=== PATIENT | male | born 1935 | race Caucasian/White ===

== ENCOUNTER 2019-09-04 16:00 | Inpatient (IN) | payer OTHER ==
[~2019-09-04] VITALS: Ht 177.8 cm; Wt 102.1 kg
[~2019-09-04 16:00] MED LIST: AMLODIPINE BESY10 M1 PO; CIPRO500 MG PO; COL100 PO; DICLOFENAC SOD75 M1 PO; ECO81 PO; GLU500 PO; HYDROCHLOROTH12.5 MG PO; LAC PO; METOPROLOL SUC100 M2 PO; METOPROLOL SUC200 M2 PO; METOPROLOL TART25 M1 PO; MOM PO; MYL80 CH; OYSTER SHELL C500 M3 PO; PRILOSEC20 MG PO; VITAMIN-D1000 IU PO; XARELTO20 M1 PO; ZESTRIL5 MG PO; ZOC10 PO; ZOFRAN8 MG PO
[2019-09-04 16:11] VITALS: Ht 177.8 cm; Wt 102.1 kg
[2019-09-04] MEDS ORDERED: AMLODIPINE BESY10 M2 PO ×2 (16:51→18:19)
[2019-09-04 18:17] LABS: PLATELET COUNT 164 x10^3mcL (130-400); RED CELL DISTRIBUTION WIDTH 13.4 % (11.5-14.5)
[2019-09-04 18:18] LABS: BASOPHIL % 0 % (0-2)
[2019-09-04] MEDS ORDERED: OMEPRAZOLE MAGN20 M1 PO (18:20)
[2019-09-04] MEDS ORDERED: XARELTO20 M1 PO (18:20)
[2019-09-04] MEDS ORDERED: LISINOPRIL-HYDR1 TA2 PO (18:20)
[2019-09-04] MEDS ORDERED: TOPROL XL100 MG PO (18:21)
[2019-09-04] MEDS ORDERED: SIMVASTATIN5 M2 PO (18:22)
[2019-09-04 18:35] LABS: microscopic required? YES; urine erythrocyte 1+ (NEGATIVE)
[2019-09-04 18:55] LABS: CALCIUM 9.3 mg/dL (8.5-10.1); CARBON DIOXIDE 25.7 mmol/L (21-32); CHLORIDE SERUM 103 mmol/L (98-107); CREATININE SERUM 1.2 mg/dL (0.7-1.3); GLUCOSE SERUM 122 mg/dL (74-106); POTASSIUM SERUM 3.8 mmol/L (3.5-5.1); SODIUM SERUM 140 mmol/L (136-145)
[2019-09-04 19:00] LABS: ALBUMIN 3.6 g/dL (3.4-5.0); ALKALINE PHOSPHATASE 72 U/L (46-116); ALT/SGPT 25 U/L (16-63); AST/SGOT 22 U/L (15-37); BILIRUBIN TOTAL 0.7 mg/dL (0.20-1.00)
[2019-09-04 22:51] VITALS: BP 126/80
[2019-09-05 04:49] VITALS: BP 104/77
[2019-09-05 06:42] LABS: BASOPHIL % 0.3 % (0-2); PLATELET COUNT 138 x10^3mcL (130-400); RED CELL DISTRIBUTION WIDTH 13.6 % (11.5-14.5)
[2019-09-05 07:01] LABS: ALKALINE PHOSPHATASE 54 U/L (46-116); ALT/SGPT 21 U/L (16-63); AST/SGOT 15 U/L (15-37); CALCIUM 8.6 mg/dL (8.5-10.1); CARBON DIOXIDE 34.2 mmol/L (21-32); CHLORIDE SERUM 105 mmol/L (98-107); CREATININE SERUM 0.9 mg/dL (0.7-1.3); GLUCOSE SERUM 110 mg/dL (74-106); MAGNESIUM 1.8 mg/dL (1.8-2.4); POTASSIUM SERUM 4.4 mmol/L (3.5-5.1); SODIUM SERUM 142 mmol/L (136-145)
[2019-09-05 07:28] LABS: ALBUMIN 2.9 g/dL (3.4-5.0); TOTAL PROTEIN, SERUM 5.9 g/dL (6.4-8.2)
[2019-09-05 08:00] VITALS: BP 97/42
[2019-09-05 12:00] VITALS: BP 119/74
[2019-09-05 17:59] VITALS: BP 137/76
[2019-09-05 21:25] VITALS: BP 103/54
[2019-09-06 05:20] VITALS: BP 130/83
[2019-09-06 06:45] LABS: BASOPHIL % 0.3 % (0-2); PLATELET COUNT 133 x10^3mcL (130-400); RED CELL DISTRIBUTION WIDTH 13.5 % (11.5-14.5)
[2019-09-06 07:09] LABS: ALKALINE PHOSPHATASE 57 U/L (46-116); ALT/SGPT 18 U/L (16-63); AST/SGOT 16 U/L (15-37); BILIRUBIN TOTAL 0.58 mg/dL (0.20-1.00); CALCIUM 8.5 mg/dL (8.5-10.1); CARBON DIOXIDE 32.6 mmol/L (21-32); CHLORIDE SERUM 105 mmol/L (98-107); CREATININE SERUM 0.8 mg/dL (0.7-1.3); GLUCOSE SERUM 107 mg/dL (74-106); MAGNESIUM 1.9 mg/dL (1.8-2.4); SODIUM SERUM 139 mmol/L (136-145)
[2019-09-06 07:20] LABS: ALBUMIN 2.9 g/dL (3.4-5.0); TOTAL PROTEIN, SERUM 5.9 g/dL (6.4-8.2)
[2019-09-06 08:45] VITALS: BP 156/88
[2019-09-06 14:28] VITALS: BP 112/68
[2019-09-06 17:39] VITALS: BP 129/79
[2019-09-06 21:10] VITALS: BP 127/61
[2019-09-07 05:13] VITALS: BP 109/53
[2019-09-07 07:22] LABS: CALCIUM 8.8 mg/dL (8.5-10.1); CARBON DIOXIDE 31.2 mmol/L (21-32); CHLORIDE SERUM 103 mmol/L (98-107); CREATININE SERUM 0.8 mg/dL (0.7-1.3); GLUCOSE SERUM 105 mg/dL (74-106); MAGNESIUM 2.1 mg/dL (1.8-2.4); SODIUM SERUM 139 mmol/L (136-145)
[2019-09-07 07:33] VITALS: BP 126/82
[2019-09-07] MEDS ORDERED: KEFLEX500 M1 PO (09:15)
[2019-09-07 10:05] VITALS: BP 126/82
== END 2019-09-07 13:45 | disposition home or self-care (01) | DRG 865 ==
LOC: ED 16:00 → DU 20:27 → MU 20:27 → ED 20:27 → DU 22:43
PROVIDERS: Emergency Medicine; Internal Medicine Pulmonary Disease; ADMIT Internal Medicine Pulmonary Disease
DX: B34.9 Viral infection, unspecified (principal); J96.01 Acute respiratory failure with hypoxia; N39.0 Urinary tract infection, site not specified; I48.91 Unspecified atrial fibrillation; R05 Cough; R50.9 Fever, unspecified; I10 Essential (primary) hypertension; E11.9 Type 2 diabetes mellitus without complications; K43.9 Ventral hernia without obstruction or gangrene; E78.5 Hyperlipidemia, unspecified; E78.00 Pure hypercholesterolemia, unspecified; F41.9 Anxiety disorder, unspecified; Z79.84 Long term (current) use of oral hypoglycemic drugs; Z83.3 Family history of diabetes mellitus; Z82.49 Family history of ischemic heart disease and other diseases of the circulatory system; Z84.1 Family history of disorders of kidney and ureter; Z88.7 Allergy status to serum and vaccine
CPT/HCPCS: 83880; 87804; G0378; J0456; J0696; J1956; J3490; J7030; J7120; Q0092; U0002

== ENCOUNTER 2020-07-03 14:15 | Inpatient (IN) | payer OTHER, SELFPAY ==
[~2020-07-03] VITALS: Ht 162.6 cm; Wt 171.0 kg
[~2020-07-03 14:15] MED LIST changes: +AMLODIPINE BESY10 M2 PO; +KEFLEX500 M1 PO; +LISINOPRIL-HYDR1 TA2 PO; +OMEPRAZOLE MAGN20 M1 PO; +SIMVASTATIN5 M2 PO; +TOPROL XL100 MG PO
[2020-07-03 14:16] VITALS: Ht 162.6 cm; Wt 171.0 kg
[2020-07-03 15:02] LABS: BASOPHIL % 0.3 % (0.2-1.5); RED CELL DISTRIBUTION WIDTH 13.7 % (12.1-16.2)
[2020-07-03 15:09] LABS: PLATELET COUNT 115 x10^3mcL (152-348)
[2020-07-03 15:15] LABS: CALCIUM 8.5 mg/dL (8.5-10.1); CARBON DIOXIDE 27.1 mmol/L (21-32); CHLORIDE SERUM 100 mmol/L (98-107); CREATININE SERUM 1.1 mg/dL (0.7-1.3); GLUCOSE SERUM 161 mg/dL (74-106); POTASSIUM SERUM 4.1 mmol/L (3.5-5.1); SODIUM SERUM 136 mmol/L (136-145)
[2020-07-03 15:20] LABS: ALKALINE PHOSPHATASE 60 U/L (46-116); ALT/SGPT 54 U/L (16-63); AST/SGOT 65 U/L (15-37); BILIRUBIN TOTAL 0.6 mg/dL (0.20-1.00); C REACTIVE PROTEIN 11.2 mg/dL (<=0.9); LACTIC DEHYDROGENASE (LDH) 337 U/L (100-190); TOTAL PROTEIN, SERUM 6.9 g/dL (6.4-8.2)
[2020-07-03 15:24] LABS: ALBUMIN 3.2 g/dL (3.4-5.0)
[2020-07-03 21:41] VITALS: BP 120/75
[2020-07-04 00:15] VITALS: BP 120/75
[2020-07-04 05:16] VITALS: BP 122/74
[2020-07-04 08:06] LABS: ALKALINE PHOSPHATASE 54 U/L (46-116); ALT/SGPT 128 U/L (16-63); AST/SGOT 190 U/L (15-37); BILIRUBIN TOTAL 0.52 mg/dL (0.20-1.00); CALCIUM 8.1 mg/dL (8.5-10.1); CARBON DIOXIDE 30.1 mmol/L (21-32); CHLORIDE SERUM 103 mmol/L (98-107); GLUCOSE SERUM 125 mg/dL (74-106); HDL CHOLESTEROL 39 mg/dL (40-60); POTASSIUM SERUM 4.9 mmol/L (3.5-5.1); SODIUM SERUM 140 mmol/L (136-145); TOTAL PROTEIN, SERUM 6.3 g/dL (6.4-8.2); TRIGLYCERIDES 104 mg/dL (<150)
[2020-07-04 08:17] LABS: ALBUMIN 2.7 g/dL (3.4-5.0); CHOLESTEROL 130 mg/dL (<200); CHOLESTEROL/HDL RATIO 3.3
[2020-07-04 08:23] VITALS: BP 110/80
[2020-07-04 08:34] LABS: BASOPHIL % 0.4 % (0.2-1.5); RED CELL DISTRIBUTION WIDTH 13.7 % (12.1-16.2)
[2020-07-04 08:40] LABS: PLATELET COUNT 114 x10^3mcL (152-348)
[2020-07-04 08:47] LABS: ALBUMIN 2.8 g/dL (3.4-5.0); BILIRUBIN DIRECT 0.22 mg/dL (0.0-0.2); BILIRUBIN TOTAL 0.5 mg/dL (0.20-1.00); TOTAL PROTEIN, SERUM 5.6 g/dL (6.4-8.2)
[2020-07-04 13:16] VITALS: BP 120/69
[2020-07-04 17:25] VITALS: BP 152/93
[2020-07-05] VITALS (9 sets, daily range): BP systolic 124–143; BP diastolic 75–86
[2020-07-05 09:24] LABS: BASOPHIL % 0.1 % (0.2-1.5); PLATELET COUNT 150 x10^3mcL (152-348); RED CELL DISTRIBUTION WIDTH 13.7 % (12.1-16.2)
[2020-07-05 09:42] LABS: ALKALINE PHOSPHATASE 67 U/L (46-116); ALT/SGPT 165 U/L (16-63); AST/SGOT 158 U/L (15-37); BILIRUBIN TOTAL 0.6 mg/dL (0.20-1.00); CALCIUM 8.5 mg/dL (8.5-10.1); CARBON DIOXIDE 27.6 mmol/L (21-32); CHLORIDE SERUM 104 mmol/L (98-107); CREATININE SERUM 0.9 mg/dL (0.7-1.3); GLUCOSE SERUM 188 mg/dL (74-106); POTASSIUM SERUM 4.3 mmol/L (3.5-5.1); SODIUM SERUM 141 mmol/L (136-145); TOTAL PROTEIN, SERUM 6.8 g/dL (6.4-8.2)
[2020-07-05 10:32] LABS: BILIRUBIN DIRECT 0.22 mg/dL (0.0-0.2); BILIRUBIN TOTAL 0.6 mg/dL (0.20-1.00); TOTAL PROTEIN, SERUM 6.3 g/dL (6.4-8.2)
[2020-07-05 10:50] LABS: ALBUMIN 3.2 g/dL (3.4-5.0)
[2020-07-06] VITALS (25 sets, daily range): BP systolic 86–153; BP diastolic 53–81
[2020-07-06 11:57] LABS: BASOPHIL % 0.1 % (0.2-1.5); PLATELET COUNT 195 x10^3mcL (152-348); RED CELL DISTRIBUTION WIDTH 14.3 % (12.1-16.2)
[2020-07-06 12:54] LABS: ALBUMIN 2.7 g/dL (3.4-5.0); ALKALINE PHOSPHATASE 66 U/L (46-116); ALT/SGPT 110 U/L (16-63); AST/SGOT 74 U/L (15-37); BILIRUBIN TOTAL 0.97 mg/dL (0.20-1.00); CALCIUM 7.9 mg/dL (8.5-10.1); CARBON DIOXIDE 21.6 mmol/L (21-32); CHLORIDE SERUM 104 mmol/L (98-107); CREATININE SERUM 1.1 mg/dL (0.7-1.3); GLUCOSE SERUM 346 mg/dL (74-106); POTASSIUM SERUM 4.8 mmol/L (3.5-5.1); SODIUM SERUM 139 mmol/L (136-145)
[2020-07-07] VITALS (35 sets, daily range): BP systolic 104–168; BP diastolic 53–80
[2020-07-07 07:24] LABS: BASOPHIL % 0.1 % (0.2-1.5); PLATELET COUNT 191 x10^3mcL (152-348); RED CELL DISTRIBUTION WIDTH 13.7 % (12.1-16.2)
[2020-07-07 07:30] LABS: ALBUMIN 2.8 g/dL (3.4-5.0); ALKALINE PHOSPHATASE 72 U/L (46-116); ALT/SGPT 85 U/L (16-63); AST/SGOT 55 U/L (15-37); BILIRUBIN TOTAL 0.8 mg/dL (0.20-1.00); CALCIUM 7.6 mg/dL (8.5-10.1); CARBON DIOXIDE 22.6 mmol/L (21-32); CHLORIDE SERUM 106 mmol/L (98-107); CREATININE SERUM 1.1 mg/dL (0.7-1.3); GLUCOSE SERUM 342 mg/dL (74-106); POTASSIUM SERUM 4.5 mmol/L (3.5-5.1); SODIUM SERUM 141 mmol/L (136-145); TOTAL PROTEIN, SERUM 6.2 g/dL (6.4-8.2)
[2020-07-08] VITALS (8 sets, daily range): BP systolic 89–136; BP diastolic 59–79
[2020-07-08 07:19] LABS: BASOPHIL % 0.1 % (0.2-1.5); PLATELET COUNT 178 x10^3mcL (152-348)
[2020-07-08 07:53] LABS: ALKALINE PHOSPHATASE 75 U/L (46-116); ALT/SGPT 77 U/L (16-63); AST/SGOT 49 U/L (15-37); BILIRUBIN TOTAL 0.6 mg/dL (0.20-1.00); CALCIUM 7.5 mg/dL (8.5-10.1); CARBON DIOXIDE 22.7 mmol/L (21-32); CHLORIDE SERUM 112 mmol/L (98-107); CREATININE SERUM 1.1 mg/dL (0.7-1.3); GLUCOSE SERUM 280 mg/dL (74-106); POTASSIUM SERUM 4.7 mmol/L (3.5-5.1); SODIUM SERUM 146 mmol/L (136-145)
[2020-07-08 07:54] LABS: ALBUMIN 2.4 g/dL (3.4-5.0); TOTAL PROTEIN, SERUM 5.7 g/dL (6.4-8.2)
[2020-07-09] VITALS (10 sets, daily range): BP systolic 98–132; BP diastolic 53–88
[2020-07-09 07:23] LABS: BASOPHIL % 0.2 % (0.2-1.5); PLATELET COUNT 183 x10^3mcL (152-348)
[2020-07-09 08:24] LABS: CALCIUM 8.2 mg/dL (8.5-10.1); CARBON DIOXIDE 28.1 mmol/L (21-32); CHLORIDE SERUM 114 mmol/L (98-107); CREATININE SERUM 1.2 mg/dL (0.7-1.3); GLUCOSE SERUM 279 mg/dL (74-106); SODIUM SERUM 151 mmol/L (136-145)
[2020-07-09 08:25] LABS: RED CELL DISTRIBUTION WIDTH 14.6 % (12.1-16.2)
[2020-07-10] VITALS (8 sets, daily range): BP systolic 93–111; BP diastolic 51–72
[2020-07-10 08:15] LABS: BASOPHIL % 0.2 % (0.2-1.5); PLATELET COUNT 175 x10^3mcL (152-348); RED CELL DISTRIBUTION WIDTH 14.5 % (12.1-16.2)
[2020-07-10 08:53] LABS: ALKALINE PHOSPHATASE 78 U/L (46-116); ALT/SGPT 65 U/L (16-63); AST/SGOT 45 U/L (15-37); BILIRUBIN TOTAL 0.6 mg/dL (0.20-1.00); CALCIUM 7.6 mg/dL (8.5-10.1); CARBON DIOXIDE 25.5 mmol/L (21-32); CHLORIDE SERUM 115 mmol/L (98-107); GLUCOSE SERUM 274 mg/dL (74-106); MAGNESIUM 3.1 mg/dL (1.8-2.4); POTASSIUM SERUM 4.8 mmol/L (3.5-5.1); SODIUM SERUM 150 mmol/L (136-145)
[2020-07-10 08:55] LABS: ALBUMIN 2.2 g/dL (3.4-5.0)
[2020-07-11] VITALS (12 sets, daily range): BP systolic 92–121; BP diastolic 51–71
[2020-07-12] VITALS: BP 76/31
[2020-07-12 03:05] VITALS: BP 110/55
[2020-07-12 04:00] VITALS: BP 161/30
[2020-07-12 06:29] LABS: PLATELET COUNT 241 x10^3mcL (152-348)
[2020-07-12 07:27] LABS: ALKALINE PHOSPHATASE 251 U/L (46-116); ALT/SGPT 54 U/L (16-63); AST/SGOT 47 U/L (15-37); BILIRUBIN TOTAL 0.78 mg/dL (0.20-1.00); CALCIUM 7.7 mg/dL (8.5-10.1); CARBON DIOXIDE 21.6 mmol/L (21-32); CHLORIDE SERUM 112 mmol/L (98-107); CREATININE SERUM 2.5 mg/dL (0.7-1.3); GLUCOSE SERUM 258 mg/dL (74-106); SODIUM SERUM 148 mmol/L (136-145); TOTAL PROTEIN, SERUM 6.4 g/dL (6.4-8.2)
[2020-07-12 08:01] LABS: RED CELL DISTRIBUTION WIDTH 16.3 % (12.1-16.2)
[2020-07-12 08:20] VITALS: BP 117/76
[2020-07-12 08:32] LABS: ATYPICAL LYMPH 2 %; BAND NEUTROPHIL 42 % (0-10); METAMYELOCTE 3 % (0-2); MONOCYTE 6 % (0-7); MYELOCYTE 2 % (0-2); SEGMENTED NEUTROPHILS 39 % (37-75); rbc morphology (normal/abnorm) ABNORMAL (NORMAL)
[2020-07-12 08:33] LABS: PLATELET MORPHOLOGY GIANT PLATELET SEEN
[2020-07-12 08:39] LABS: ALBUMIN 1.9 g/dL (3.4-5.0); POTASSIUM SERUM 5.6 mmol/L (3.5-5.1)
[2020-07-12 09:50] VITALS: BP 91/36
[2020-07-12 12:00] VITALS: BP 120/74; BP 182/68
== END 2020-07-12 20:00 | DRG 870 ==
LOC: ED 14:15 → DU 17:33 → IC 17:33 → DU 21:15 → IC 07-08 12:39
PROVIDERS: Emergency Medicine; Internal Medicine Pulmonary Disease; ADMIT Hospitalist; ATTEND Hospitalist
PROC: XW033E5 Introduction of Remdesivir Anti-infective into Peripheral Vein, Percutaneous Approach, New Technology Group 5 (ICD-10-PCS; 2020-07-03)
PROC: 5A09357 Assistance with Respiratory Ventilation, Less than 24 Consecutive Hours, Continuous Positive Airway Pressure (ICD-10-PCS; 2020-07-05)
PROC: 5A1955Z Respiratory Ventilation, Greater than 96 Consecutive Hours (ICD-10-PCS; principal; 2020-07-06)
PROC: 0BH17EZ Insertion of Endotracheal Airway into Trachea, Via Natural or Artificial Opening (ICD-10-PCS; 2020-07-06)
PROC: XW13325 Transfusion of Convalescent Plasma (Nonautologous) into Peripheral Vein, Percutaneous Approach, New Technology Group 5 (ICD-10-PCS; 2020-07-06)
PROC: 02HV33Z Insertion of Infusion Device into Superior Vena Cava, Percutaneous Approach (ICD-10-PCS; 2020-07-06)
PROC: B548ZZA Ultrasonography of Superior Vena Cava, Guidance (ICD-10-PCS; 2020-07-06)
DX: A41.89 Other specified sepsis (principal); U07.1 COVID-19; J12.82 Pneumonia due to coronavirus disease 2019; J96.01 Acute respiratory failure with hypoxia; R65.21 Severe sepsis with septic shock; N17.0 Acute kidney failure with tubular necrosis; E87.0 Hyperosmolality and hypernatremia; Z88.7 Allergy status to serum and vaccine; I10 Essential (primary) hypertension; E78.00 Pure hypercholesterolemia, unspecified; E11.9 Type 2 diabetes mellitus without complications; I48.91 Unspecified atrial fibrillation; Z83.3 Family history of diabetes mellitus; Z82.49 Family history of ischemic heart disease and other diseases of the circulatory system; Z84.1 Family history of disorders of kidney and ureter; Z79.899 Other long term (current) drug therapy; E78.5 Hyperlipidemia, unspecified; I46.9 Cardiac arrest, cause unspecified; Z66 Do not resuscitate; E87.5 Hyperkalemia
CPT/HCPCS: 31500; 36600; 82962; 83880; 85378; 87804; C9113; G0378; J0282; J1100; J1160; J1650; J1815; J2250; J2370; J2704; J3010; J3490; J3535; J7030; U0003